=== PATIENT | female | born 1970 | race Caucasian/White ===

== ENCOUNTER 2017-05-30 16:21 | Emergency (ER) | payer MEDICAID ==
[~2017-05-30] VITALS: Ht 175.3 cm; Wt 102.1 kg
[~2017-05-30 16:21] MED LIST: AMLO10TA4 PO; AZIT250T6 PO; HYDR-971 PO; IBUP400T18 PO; LISI-334 PO; LORA10TA68 PO; METO25TA2 PO; [UNRECOGNIZED DRUG - REMARK]
[2017-05-30] MEDS ORDERED: PRED20TA PO (16:56)
[2017-05-30] MEDS ORDERED: DIAZ5TAB PO (16:56)
[2017-05-30] MEDS ORDERED: HYDR-965 PO (16:56)
--- NOTE | 2017-05-30 16:59 | PHYS DOC ---
General Chief Complaint: BACK PAIN - NO INJURY Stated Complaint: BACK PAIN Time Seen by MD: 16:34 Source: patient Exam Limitations: no limitations Problems: History of Present Illness Initial Comments Patient is a 47-year-old female who comes to the ED complaining of back pain. Patient states that earlier today she was climbing a ladder felt a twinge similar left low back. Patient points to her left SI joint, claiming severe discomfort at that area and in the left buttocks radiating down her left posterior leg the knee. No saddle anesthesia leg weakness or bowel or bladder symptoms. No pre-arrival treatment pain described as sharp and achy 10 out of 10 worse with movement nothing relieves. No other traumas Timing/Duration: 1-3 hours Severity: severe Modifying Factors: improves with medication, worse with movement Associated Symptoms: other Allergies: Coded Allergies: No Known Drug Allergies (Unverified , 11/03/14) Past Medical History Medical History: other (CHF, hypertension) Surgical History: noncontributory Social History Smoker: cigarettes Alcohol: none Drugs: none Review of Systems Constitutional: denies chills, denies fever Respiratory: denies cough, denies shortness of breath Cardiovascular: denies chest pain, denies palpitations Gastrointestinal: denies nausea, denies vomiting Genitourinary: denies dysuria, denies frequency, denies hematuria Musculoskeletal: see HPI Psychiatric/Neurological: see HPI, denies headache, denies numbness, denies paresthesia, denies weakness Physical Exam General Appearance: moderate distress, obese Ear, Nose, Throat: hearing grossly normal, normal ENT inspection Neck: non-tender, supple Respiratory: normal breath sounds, no respiratory distress Cardiovascular: normal peripheral pulses, tachycardia Gastrointestinal: non tender, soft Back: no CVA tenderness, no vertebral tenderness Extremities: non-tender, normal inspection (decreased range of motion due to pain) 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 Beginning Saturday, heating pad to affected area 4-6 times daily followed by gentle stretching. Prescription: [place] 7.5 mg #20, prednisone, Valium 5 mg #5 Take medications with food to avoid nausea and GI upset. Do not take [place] with Valium to avoid interaction. Follow-up with your doctor tomorrow if you're not feeling any better. Return to ED with new or changing symptoms. CROW HOLLINGSWORTH DO May 30, 2017 16:59
[2017-05-30 17:20] VITALS: BP 150/90
[2017-05-30] MEDS ORDERED: methylPREDNISolone SOD SUCC PF 125 MG/2 ML VIAL. IM ONE (17:20)
[2017-05-30] MEDS ORDERED: KETOROLAC 60 MG/2 ML VIAL. IM ONE (17:20)
== END 2017-05-30 17:25 | disposition home or self-care (01) ==
LOC: ER 16:21
DX: G57.01 Lesion of sciatic nerve, right lower limb (principal)
CPT/HCPCS: 96372; 99284; J1885; J2930

== ENCOUNTER 2017-06-12 16:41 | Emergency (ER) | payer MEDICAID ==
[~2017-06-12] VITALS: Ht 175.3 cm; Wt 101.6 kg
[~2017-06-12 16:41] MED LIST changes: +DIAZ5TAB PO; +HYDR-965 PO; +PRED20TA PO
[2017-06-12 17:00] VITALS: BP 168/110
[2017-06-12] MEDS ORDERED: IV NORMAL SALINE 1,000ML 1,000 ML IV SCH (17:20)
[2017-06-12] MEDS ORDERED: 0.9 % SODIUM CHLORIDE 10 ML DISP.SYRIN. IV PRN (17:30)
--- NOTE | 2017-06-12 17:36 | PHYS DOC ---
Past History Past Medical History: CHF Past Surgical History: , Other Smoking: Cigarettes Alcohol Use: None Drug Use: None Adult General Chief Complaint Chief Complaint: SKIN PROBLEM [facility] HPI Patient is a pleasant 47-year-old female who presents with a rash with scarring and pits ongoing 6 years. She's been seen here in our ER for multiple medical issues to include chronic lower back pain and sciatica. She presents today with an increasing rash she describes as an infectious process that she was told with staff according to her bicycle subassembler. This process been going on and off for 6 years primary starting on her head and mostly forming on her arms distal legs and lower portion of her abdomen, and breasts. She describes fatigue, subjective chills and fevers without nothing documented. Decreased energy, and some depression. She is a smoker presently using a vape machine she denies the use of drugs like amphetamines or alcohol. Patient denies any sick contacts. She has been on several courses of antibiotics for chronic intermittent UTIs. She says that her hairs also stopped growing and that she is having difficulty managing her pain. Review of Systems Review of Systems Constitutional: Subjective fevers or chills Eyes: Denies change in visual acuity, redness, or eye pain [] HENT: Denies nasal congestion or sore throat [] Respiratory: Denies cough or shortness of breath [] Cardiovascular: No additional information not addressed in HPI [] GI: Denies abdominal pain, nausea, vomiting, bloody stools or diarrhea [] : Denies dysuria or hematuria [] Musculoskeletal: Denies back pain or joint pain [] Integument: She has considerable skin lesions all over her upper and lower extremities on her abdomen and her breast. There is also a few lesions on her face Neurologic: Denies headache, focal weakness or sensory changes [] Endocrine: Denies polyuria or polydipsia [] Allergies Allergies Allergies Coded Allergies Type Severity Reaction Last Updated Verified No Known Drug Allergies 06/12/17 No Physical Exam Physical Exam Vital signs demonstrate hypertension without fever, tachycardia or hypoxia Constitutional: Well developed, well nourished, but she is obviously uncomfortable she seems very anxious and has a great deal of motor agitation. HENT: Normocephalic, atraumatic, bilateral external ears normal, oropharynx moist, no oral exudates, nose normal. [] Eyes: PERRLA, EOMI, conjunctiva normal, no discharge. [] Neck: Normal range of motion, no tenderness, supple, no stridor. [] Cardiovascular:Heart rate regular rhythm, no murmur [] Lungs & Thorax: Bilateral breath sounds clear to auscultation [] Skin: Her skin is warm and dry there are multiple areas of small denuded lesions almost like cellulitic patches with ulcers. There are multiple eschars forming her lower legs and upper extremity's in her face. There is significant erythema around each lesion measuring anywhere from 2 mm to 5 mg in size. There is significant excoriation each lesion. There is mild soft tissue swelling around each lesion. There is no petechiae or bulla no vesicles no palm or sole involvement. There is no Janeway's lesions or Osler's nodes seemed had no joint involvement. Extremities: No tenderness, no cyanosis, no clubbing, ROM intact, no edema. [] Neurologic: Alert and oriented X 3, normal motor function, normal sensory function, no focal deficits noted. [] Psychologic: Patient is very anxious hoping that I'll be probed to provide an answer for her chronic issue.] Current Patient Data Vital Signs Vital Signs Date Time Temp Pulse Resp B/P (MAP) Pulse Ox O2 Delivery O2 Flow Rate FiO2 06/12/17 17:00 98.5 76 18 99 Room Air EKG EKG [] Radiology/Procedures Radiology/Procedures [] Course & Med Decision Making Course & Med Decision Making Pertinent Labs and Imaging studies reviewed. (See chart for details) Patient presents very frustrated that the last 6 years she's had a cellulitic- like pattern of abscesses on her upper and lower extremity's. She's been diagnosed with staff in the past by a bicycle subassembler in the last year but has refused to followed up. Her chronic fatigue lower extremity predominance of these lesions I am concerned with a vasculitis, versus a chronic rheumatologic disorder causing her symptoms. I advised her that she would be best served to follow with the bicycle subassembler and getting referred to a wire galvanizer for continued evaluation of this chronic issue. Differential diagnosis for rash includes but not limited to disseminated gonorrhea, syphilis, cellulitis, staph aureus, meningitis, ITP, TTP, Campos mountain spotted fever, HSP, TEN, EM, urticaria, S TTS, possible endocarditis secondary to drug abuse. 1850: I reevaluated the patient after lab work has come back. Patient does have a positive UTI. Explained to the patient I will treat her with Bre alexander with UTI and give her steroids for the skin rash. Recommended she follow up with her PCP to be referred on to a bicycle subassembler for further evaluation of her skin rash. Patient is stable for discharge. MDM: After reviewing the chart, CC/HPI/PMH, physical exam, [lab results], I do not believe the patient has a severe life-threatening rash and is stable to be discharged home and follow-up with PCP with referral to dermatology. Patient does have a non-compensated UTI that we treated with oral antibiotics and discharge. Additional verbal discharge instructions were provided to the patient and that if symptoms get worse or any new symptoms arise that are worrisome to the patient she is to return to the emergency room immediately [] Dragon Disclaimer Dragon Disclaimer This chart was dictated in whole or in part using Voice Recognition software in a busy, high-work load, and often noisy Emergency Department environment. It may contain unintended and wholly unrecognized errors or omissions. Departure Departure: Impression: Primary Impression: UTI (urinary tract infection) Additional Impression: Skin rash Disposition: HOME, SELF-CARE Condition: IMPROVED Referrals: OG URBINA (PCP) Patient Instructions: Rash, Urinary Tract Infection, [id number] Additional Instructions: Please follow-up with your family physician in the next one to 2 days for referral on to a bicycle subassembler. Please return if symptoms increase Scripts Prednisone (PREDNISONE) 50 Mg Tablet 50 MG PO DAILY for 5 Days, #5 TAB Prov: LLOYD STARR DO 06/12/17 Sulfamethoxazole/Trimethoprim (BACTRIM DS TABLET) 1 Each Tablet 1 TAB PO BID for 5 Days, #10 TAB Prov: LLOYD STARR DO 06/12/17 Problem Qualifiers CHANEL MATTA MD Jun 12, 2017 17:36 LLOYD STARR DO Jun 12, 2017 19:03
[2017-06-12] MEDS ORDERED: ceFAZolin SODIUM 1 GM VIAL ONE (17:44)
[2017-06-12] MEDS ORDERED: IV NORMAL SALINE 50ML 50 ML ONE (17:44)
[2017-06-12 17:45] LABS: U PREG PATIENT NEGATIVE (NEG)
[2017-06-12] MEDS ORDERED: KETOROLAC 30 MG/ML VIAL. IV ONE (17:45)
[2017-06-12 17:46] LABS: BARBITURATES NEG (NEG); BENZODIAZEPINES POS (NEG); CANNABINOIDS NEG (NEG); COCAINE NEG (NEG); METHADONE NEG (NEG); OPIATES POS (NEG); PHENCYCLIDINE NEG (NEG)
[2017-06-12 17:47] LABS: AMPHETAMINE/METHAMPHETAMINE NEG (NEG)
[2017-06-12 18:00] LABS: BASO # 0.1 x10^3/uL (0.0-0.2); BASO % 1 % (0-3); EOS # 0.3 x10^3/uL (0.0-0.7); EOS % 3 % (0-3); HEMATOCRIT 42.4 % (36.0-47.0); HEMOGLOBIN 14.9 g/dL (12.0-15.5); LYMPH # 1.9 x10^3/uL (1.0-4.8); LYMPH % 23 % (24-48); MEAN CORPUSCULAR HEMOGLOBIN 32 pg (25-35); MEAN CORPUSCULAR HGB CONC 35 g/dL (31-37); MEAN CORPUSCULAR VOLUME 92 fL (79-100); MONO # 0.6 x10^3/uL (0.0-1.1); MONO % 7 % (0-9); NEUT # 5.4 x10^3uL (1.8-7.7); NEUT % 65 % (31-73); PLATELET COUNT 260 x10^3/uL (140-400); RED BLOOD COUNT 4.61 x10^6/uL (3.50-5.40); RED CELL DISTRIBUTION WIDTH 13.8 % (11.5-14.5); WHITE BLOOD COUNT 8.3 x10^3/uL (4.0-11.0)
[2017-06-12 18:08] LABS: C REACTIVE PROTEIN 12.3 mg/L (0-3.3); GFR 59.2; POTASSIUM 4.1 mmol/L (3.5-5.1)
[2017-06-12 18:27] LABS: BILIRUBIN,URINE NEG (NEG); CLARITY,URINE HAZY; COLOR,URINE YELLOW; GLUCOSE,URINE NEG (NEG); NITRITE,URINE NEG (NEG); UROBILINOGEN,URINE 0.2 mg/dL (0.2 mg/dL)
[2017-06-12 18:28] LABS: BACTERIA,URINE MANY /HPF (0-FEW); SQUAMOUS EPITHELIAL CELL,UR MOD /LPF; WBC,URINE 20-40 /HPF (0-4)
[2017-06-12] MEDS ORDERED: ACETAMINOPHEN 500 MG TABLET PO ONE (18:45)
[2017-06-12] MEDS ORDERED: SULF1TAB24 PO (19:02)
[2017-06-12] MEDS ORDERED: PRED50TA PO (19:02)
[2017-06-12 21:40] LABS: % BASOS 1 % (0-3); % EOS 1 % (0-5); % LYMPHS 21 % (24-48); % MONOS 7 % (0-10); % SEGS 70 % (35-66)
[2017-06-12 21:41] LABS: TOXIC GRANULATION PRESENT; TOXIC VACUOLATION PRESENT
[2017-06-12 21:44] LABS: PLT ESTIMATE ADEQUATE (ADEQUATE)
[2017-06-12 21:48] LABS: STOMATOCYTES PRESENT
[2017-06-12 21:50] LABS: SEDIMENTATION RATE 42 (0-25)
== END 2017-06-12 19:11 | disposition home or self-care (01) ==
LOC: ER 16:41
DX: R21 Rash and other nonspecific skin eruption (principal); N39.0 Urinary tract infection, site not specified; G89.29 Other chronic pain; F17.210 Nicotine dependence, cigarettes, uncomplicated; I50.9 Heart failure, unspecified
CPT/HCPCS: 36415; 80048; 80307; 81001; 81025; 85007; 85025; 85651; 86140; 86592; 86593; 87086; 96365; 96375; 99284; J0690; J1885; 87186; G0479; J7030